=== PATIENT | male | born 1990 | race Caucasian/White ===

== ENCOUNTER 2022-02-10 08:01 | Outpatient (REF) | payer OTHER, SELFPAY ==
[2022-02-10 11:45] LABS: Hematocrit 45.7 % (42.0-52.0); Hemoglobin 15.2 g/dl (14.0-18.0); Mean Corpuscular HGB Conc 33.3 g/dl (31.0-36.0); Mean Corpuscular Hemoglobin 30.5 pg (27.0-33.0); Mean Corpuscular Volume 91.8 fL (80.0-98.0); Platelet Count 309 X10*3/uL (160-400); Red Blood Count 4.98 X10*6/uL (4.60-5.80); Red Cell Distribution Width 12.5 % (11.0-16.0); White Blood Count 5.1 X10*3/uL (4.8-10.8)
[2022-02-10 13:44] LABS: Alanine Aminotransferase 28 U/L (0-40); Albumin Level 4.4 g/dL (3.5-5.0); Alkaline Phosphatase 88 U/L (39-117); Anion Gap 12 (12-20); Aspartate Amino Transferase 31 U/L (5-37); Bilirubin Total 0.5 mg/dL (0.0-1.0); Blood Urea Nitrogen 11 mg/dL (9-16); Calcium 9.5 mg/dL (8.4-10.2); Carbon Dioxide 28 mmol/L (22-29); Chloride 107 mmol/L (96-108); Estimated Glomerular Filt Rate > 60; Glucose Fasting 90 mg/dL (60-99); Potassium 4.6 mmol/L (3.3-5.1); Sodium 142 mmol/L (135-145); TSH reflex Free T4 1.51 uIU/mL (0.32-4.0); Total Protein 7.2 g/dL (6.5-8.0)
== END 2022-02-10 08:02 | disposition home or self-care (01) ==
LOC: HO.WFDLDS 08:01
PROVIDERS: Visit Provider Nurse Practitioner Family
DX: R53.1 Weakness (principal); R53.83 Other fatigue; R42 Dizziness and giddiness
CPT/HCPCS: 36415; 80053; 84443; 85027

== ENCOUNTER → 2022-10-06 12:43 | Outpatient (AMB) | payer OTHER, SELFPAY ==
--- NOTE | 2022-10-06 12:57 | A.OFFPC_ITS ---
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 Accompanied by: Self / Same As Patient Allergies Seasonal Allergies Allergy (Intermediate, Verified 10/06/22 13:19) Congestion Medication List - Last Reconciled 10/06/22 by Elizabeth Floyd CNP betamethasone dipropionate 0.05% 1 appl topical BID PRN fluticasone propionate 50 mcg/actuation (Flonase Allergy Relief) 1 spray intranasal Q12H 30 days Tobacco use date assessed: 09/01/22 Dental Screening Dental Screen Date: 10/06/22 Did you have a dental visit in the last 12 months?: Yes Did you have a dental problem in the last 6 months where you did not have access to dental care?: No Was dental information given to patient?: Patient has dentist HPI HPI Comments History of Present Illness Details 32-year-old male presents for psoriasis and lab review He was prescribed betamethasone cream for rash on his arms and legs. He reports significant improvement especially to the rash on his arms. He states that he ran out of the cream about a week ago. He has Dermatology appointment scheduled for April 2023. No acute symptoms today. He notes that he forgot to get his fasting blood work done. [facility] Medical History Anxiety Depression Surgical History No pertinent past surgical history Social History Housing: House Patient Tobacco Use Status: Current everyday Tobacco user Tobacco use type: Cigarette Cigarettes Per Day: 2 Years Smoked: 2 e-Cigarette/Vaping Use: Never Used service: No Current occupational status: employed Current occupation: [employer] Cognitive needs: No Hearing needs: No Vision needs: No Questionnaire Thrive Questionnaire Date Thrive assessed: 09/01/22 RITA-7 AMB Questionnaire RITA-7 Date RITA - 7 assessed: 09/01/22 Source: Developed by Drs. Wojciech Martin, Veena Hobson, Nathaniel Judge and colleagues, with an educational linn from [employer]. Review of Systems Const Details: Const Denies chills, Denies fatigue, Denies fever(s), Denies headache(s) and Denies weakness ENT Denies dizziness and Denies headache(s) Card Denies chest pain, Denies lightheadedness, Denies dyspnea and Denies other (Palpitations) Resp Denies cough, Denies dyspnea, Denies wheezing and Denies other ( shortness of breath) GI Denies abdominal pain, Denies melena, Denies hematochezia, Denies change in bowel habits, Denies dyspepsia and Denies nausea Denies hematuria and Denies dysuria Musc Denies abnormal gait, Denies myalgias, Denies arthralgias, Denies numbness and Denies tingling Skin/Breast Reports rash to his arms and legs, Denies unusual bruising and Denies wounds Neuro Denies abnormal gait, Denies dizziness, Denies headache(s), Denies memory loss, Denies numbness, Denies Sensory deficit (Neuro), Denies tingling and Denies weakness Psych Denies anxiety and Denies depression Endo Denies fatigue Aller/Immun Denies wheezing Physical exam (Primary Care) Vital Signs: Last Vital Signs Pulse 86 10/06/22 12:59 BP 130/74 10/06/22 12:59 Pulse Ox 98 10/06/22 12:59 Oxygen Delivery Method Room Air 10/06/22 12:59 BMI result Body Mass Index 27.9 Tobacco/Smoking Status: Tobacco use Status Tobacco use date assessed 09/01/22 10/06/22 13:01 Patient Tobacco Use Status Current everyday Tobacco 10/06/22 13:01 Tobacco use type Cigarette 10/06/22 13:01 e-Cigarette/Vaping Use Never Used 10/06/22 13:01 Thrive Assessment: Date of Thrive Assessment Date Thrive assessed 09/01/22 10/06/22 13:01 Const Other: General: no acute distress and well developed Nutritional Appearance: well nourished Orientation/consciousness: patient oriented x3 HENMT Head: Yes normocephalic and Yes atraumatic Eyes General: appearance normal, both eyes and all related structures Pupils: Equal, round and reactive pupils present EOM: EOMs intact bilaterally Resp Effort & Inspection: normal respiratory effort Auscultation: clear to auscultation bilaterally Cardio Rate: regular rate Rhythm: regular rhythm Heart sounds: S1 normal heart sound present, S2 normal heart sound present, no gallops, no murmurs and no rubs GI Palpation (GI): No Abdominal aortic bruit present, Soft to palpation, nontender, No hepatosplenomegaly present and No Rebound tenderness present Auscultation: normal bowel sounds General: Yes no CVA tenderness Back/Spine/Pelvis Back: no CVA tenderness Cervical Spine: cervical ROM normal and No Cervical spine tenderness Thoracic/Lumbar Spine: thoraco-lumbar ROM normal, No pain with thoraco-lumbar ROM, No thoracic spinal tenderness and No lumbar spinal tenderness Extrem General: Yes normal to inspection, No edema and No calf tenderness Skin General: warm and dry. Normal skin color. Normal skin turgor Lesions: no lesions Rashes: Patches of take red skin with silvery scales noted to exposed areas of his upper extremities and lower extremities (from knees to ankles); consistent with psoriasis Trauma: no lacerations or abrasions Wounds: no wounds Nails: normal Neuro General: patient oriented x3, gait normal and no focal neuro deficit Cranial nerves: Yes Equal, round and reactive pupils present Cognition (Neuro): normal cognition Gait exam (Neuro): Normal gait present Motor exam (neuro): 5/5 motor strength present throughout Sensory Exam: No Sensory deficit (Neuro) Psych Appearance: grossly normal Affect: normal affect Attitude: cooperative Thought process: Normal thought process present Assessment and Plan Assessment & Plan (1) Psoriasis: Code(s): L40.9 - Psoriasis, unspecified Plan: Psoriasis rash noted to upper arms and lower legs. Marked improvement to rash on arms Informed that he has refills on betamethasone cream. Advised to get refill from the pharmacy Follow up with dermatology as planned Advised to get fasting blood work done and schedule a telehealth appointment for review Return with worsening or new signs and symptoms Verbalized understanding and agreed with the treatment plan. Coding Level of Care Code Est Pt Level 3 (62882) Diagnoses Psoriasis L40.9 Time Spent (min) 25
[2022-10-06 12:59] VITALS: BP 130/74; PULSE 86; O2SAT 98; BMI 27.9
== END ==
PROVIDERS: PCP Nurse Practitioner Family; Visit Provider Nurse Practitioner Family
DX: L40.9 Psoriasis, unspecified (principal)
CPT/HCPCS: 99213

== ENCOUNTER 2022-10-20 11:19 | Outpatient (REF) | payer OTHER, SELFPAY ==
[2022-10-20 15:01] LABS: Cholesterol 206 mg/dL; HDL Cholesterol 78 mg/dL; LDL Cholesterol Calculated 110 mg/dl; Triglycerides 90 mg/dL
== END 2022-10-20 11:20 | disposition home or self-care (01) ==
LOC: HO.WFDLDS 11:19
PROVIDERS: Visit Provider Nurse Practitioner Family
DX: Z00.00 Encounter for general adult medical examination without abnormal findings (principal)
CPT/HCPCS: 36415; 80061

== ENCOUNTER 2022-10-30 16:07 | Outpatient (AMB) | payer OTHER, SELFPAY ==
--- NOTE | 2022-10-30 16:04 | A.OFFPC_ITS ---
Intake Visit Reasons: Lab f/u/[phone]/Iphone Intake Note: Patient reports he is ready for his telehealth call. 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 Patient upper is no complaints as this time. [facility] Medical History Anxiety Depression Surgical History No pertinent past surgical history Social History Housing: House Patient Tobacco Use Status: Current everyday Tobacco user Tobacco use type: Cigarette Cigarettes Per Day: 2 Years Smoked: 2 e-Cigarette/Vaping Use: Never Used service: No Current occupational status: employed Current occupation: [employer] Cognitive needs: No Hearing needs: No Vision needs: No Questionnaire Thrive Questionnaire Date Thrive assessed: 09/01/22 RITA-7 AMB Questionnaire RITA-7 Date RITA - 7 assessed: 09/01/22 Source: Developed by Drs. Wojciech Martin, Veena Hobson, Nathaniel Judge and colleagues, with an educational linn from [employer]. Review of Systems Const Details: Const Denies chills, Denies fatigue, Denies fever(s), Denies headache(s) and Denies weakness ENT Denies dizziness and Denies headache(s) Card Denies chest pain, Denies lightheadedness, Denies dyspnea and Denies other (Palpitations) Resp Denies cough, Denies dyspnea, Denies wheezing and Denies other ( shortness of breath) GI Denies abdominal pain, Denies melena, Denies hematochezia, Denies change in arturo wel habits, Denies dyspepsia and Denies nausea Denies hematuria and Denies dysuria Musc Denies abnormal gait, Denies myalgias, Denies arthralgias, Denies numbness and Denies tingling Skin/Breast Denies rash, Denies unusual bruising and Denies wounds Neuro Denies abnormal gait, Denies dizziness, Denies headache(s), Denies memory loss, Denies numbness, Denies Sensory deficit (Neuro), Denies tingling and Denies weakness Psych Denies anxiety, Denies depression, Denies memory loss Endo Denies cold intolerance, Denies fatigue, Denies heat intolerance, Denies polydipsia and Denies polyuria Aller/Immun Denies wheezing Physical exam (Primary Care) Tobacco/Smoking Status: Tobacco use Status Tobacco use date assessed 09/01/22 10/30/22 16:07 Patient Tobacco Use Status Current everyday Tobacco 10/30/22 16:07 Tobacco use type Cigarette 10/30/22 16:07 e-Cigarette/Vaping Use Never Used 10/30/22 16:07 Thrive Assessment: Date of Thrive Assessment Date Thrive assessed 09/01/22 10/30/22 16:07 Const Other: Telehealth. No physical exam Telehealth Telehealth Location of provider rendering services: practice address Location of patient: address on file Patient Identification confirmed using: Name, : Yes Telehealth method: voice only Patient verbally consented to treatment: Yes Patient verbally consented to billing insurance company: Yes Patient informed of any privacy concerns related to visit: Yes Minutes spent on Phone/Video with Pt.: 15 Assessment and Plan Assessment & Plan (1) Hypercholesterolemia: Code(s): E78.00 - Pure hypercholesterolemia, unspecified Plan: Recent lab results reviewed with the patient Cholesterol is slightly elevated Advised to limit foods high in saturated fat and avoid foods high trans fat Routine exercise encouraged Call and schedule an appointment for a physical for next year Return with symptoms or concerns Verbalized understanding and agreed with treatment plan. Coding Level of Care Code Est Pt Level 3 (68164) Diagnoses Hypercholesterolemia E78.00
== END 2022-10-30 17:45 ==
PROVIDERS: PCP Nurse Practitioner Family; Visit Provider Nurse Practitioner Family
DX: E78.00 Pure hypercholesterolemia, unspecified (principal)
CPT/HCPCS: 99213

== ENCOUNTER 2023-04-30 16:52 | Outpatient (AMB) | payer OTHER, SELFPAY ==
--- NOTE | 2023-04-30 16:55 | A.OFFPC_ITS ---
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 Accompanied by: Self / Same As Patient Allergies Seasonal Allergies Allergy (Intermediate, Verified 04/30/23 17:36) Congestion Medication List - Last Reconciled 04/30/23 by Elizabeth Floyd CNP betamethasone dipropionate 0.05% 1 appl topical BID PRN fluticasone propionate 50 mcg/actuation (Flonase Allergy Relief) 1 spray intranasal Q12H 30 days Tobacco use date assessed: 04/30/23 Dental Screening Dental Screen Date: 04/30/23 Did you have a dental visit in the last 12 months?: No Did you have a dental problem in the last 6 months where you did not have access to dental care?: No Was dental information given to patient?: Patient has dentist HPI HPI Comments History of Present Illness Details 32-year-old male presents with complaint s of mild and discomfort to his bilateral lower knees. He attributes his symptoms to compensating for or trying to correct his wide gait which started at childhood. No fall, injury, or trauma. No tingling, numbness, or loss of sensation. [facility] Medical History Depression Anxiety Surgical History No pertinent past surgical history Social History Housing: House Patient Tobacco Use Status: Current someday Tobacco user Tobacco use type: Cigarette Cigarettes Per Day: 2 Years Smoked: 2 Packs per year/per ci.20 e-Cigarette/Vaping Use: Never Used service: No Current occupational status: employed Current occupation: [employer] Cognitive needs: No Hearing needs: No Vision needs: No Questionnaire Thrive Questionnaire Date Thrive assessed: 09/01/22 RITA-7 AMB Questionnaire RITA-7 Date RITA - 7 assessed: 09/01/22 Source: Developed by Drs. Wojciech Martin, Veena Hobson, Nathaniel Judge and colleagues, with an educational linn from [employer]. Review of Systems Const Details: Const Denies chills, Denies fatigue, Denies fever(s), Denies headache(s) and Denies weakness ENT Denies dizziness and Denies headache(s) Card Denies chest pain, Denies lightheadedness, Denies dyspnea and Denies other (Palpitations) Resp Denies cough, Denies dyspnea, Denies wheezing and Denies other ( shortness of breath) GI Denies abdominal pain, Denies melena, Denies hematochezia, Denies change in bowel habits, Denies dyspepsia and Denies nausea Denies hematuria and Denies dysuria Musc Reports as per HPI Skin/Breast Denies rash, Denies unusual bruising and Denies wounds Neuro Reports wide gait, Denies dizziness, Denies headache(s), Denies memory loss, Denies numbness, Denies Sensory deficit (Neuro), Denies tingling and Denies weakness Psych Denies anxiety, Denies depression, Denies memory loss Endo Denies cold intolerance, Denies fatigue, Denies heat intolerance, Denies polydipsia and Denies polyuria Aller/Immun Denies wheezing Physical exam (Primary Care) Vital Signs: Last Vital Signs Temp 97.6 F 04/30/23 16:57 Pulse 89 04/30/23 16:57 Resp 13 04/30/23 16:57 BP 126/80 04/30/23 16:57 Pulse Ox 97 04/30/23 16:57 Oxygen Delivery Method Room Air 04/30/23 16:57 BMI result Body Mass Index 28.2 Tobacco/Smoking Status: Tobacco use Status Tobacco use date assessed 04/30/23 04/30/23 17:02 Patient Tobacco Use Status Current someday Tobacco 04/30/23 17:02 Tobacco use type Cigarette 04/30/23 17:02 e-Cigarette/Vaping Use Never Used 04/30/23 17:02 Thrive Assessment: Date of Thrive Assessment Date Thrive assessed 09/01/22 04/30/23 17:02 Const Other: General: no acute distress and well developed Nutritional Appearance: well nourished Orientation/consciousness: patient oriented x3 HENMT Head: Yes normocephalic and Yes atraumatic Eyes General: appearance normal, both eyes and all related structures Pupils: Equal, round and reactive pupils present EOM: EOMs intact bilaterally Resp Effort & Inspection: normal respiratory effort Auscultation: clear to auscultation bilaterally Cardio Rate: regular rate Rhythm: regular rhythm Heart sounds: S1 normal heart sound present, S2 normal heart sound present, no gallops, no murmurs and no rubs GI Palpation (GI): No Abdominal aortic bruit present, Soft to palpation, nontender, No hepatosplenomegaly present and No Rebound tenderness present Auscultation: normal bowel sounds General: Yes no CVA tenderness Back/Spine/Pelvis Back: no CVA tenderness Cervical Spine: cervical ROM normal and No Cervical spine tenderness Thoracic/Lumbar Spine: thoraco-lumbar ROM normal, No pain with thoraco-lumbar ROM, No thoracic spinal tenderness and No lumbar spinal tenderness Extrem General: Yes normal to inspection, No edema and No calf tenderness No overt signs of injury or trauma Skin General: warm and dry. Normal skin color. Normal skin turgor Neuro General: patient oriented x3, gait broad and no focal neuro deficit Cranial nerves: Yes Equal, round and reactive pupils present Cognition (Neuro): normal cognition Gait exam (Neuro): Broad-based gait present Sensory Exam: No Sensory deficit (Neuro) Psych Appearance: grossly normal Affect: normal affect Attitude: cooperative Thought process: Normal thought process present Assessment and Plan Assessment & Plan (1) Bilateral knee pain: Code(s): M25.561 - Pain in right knee; M25.562 - Pain in left knee Plan: Pain and discomfort to bilateral lower knees Broad-based gait present Will refer to physical therapy May take Tylenol ibuprofen for pain or discomfort Follow-up with worsening or new symptoms Verbalized understanding and agreed with treatment plan (2) Broad-based gait: Code(s): R26.0 - Ataxic gait Plan: As above Orders: Orders PT Evaluation and Treatment Today M25.561 - Pain in right knee, M25.562 - Pain in left knee, R26.0 - Ataxic gait Coding Level of Care Code Est Pt Level 3 (76136) Diagnoses Bilateral knee pain M25.561; M25.562 Broad-based gait R26.0
[2023-04-30 16:57] VITALS: BP 126/80; PULSE 89; RESP 13; TEMP 36.4; O2SAT 97; BMI 28.2
== END 2023-04-30 17:48 | disposition home or self-care (01) ==
PROVIDERS: PCP Nurse Practitioner Family; Visit Provider Nurse Practitioner Family
DX: M25.561 Pain in right knee (principal); M25.562 Pain in left knee; R26.0 Ataxic gait
CPT/HCPCS: 99213

== ENCOUNTER 2023-08-01 14:00 | Outpatient (RCR) | payer OTHER, SELFPAY ==
--- NOTE | 2023-06-27 09:22 | MHC.PT.EP ---
[facility] [place] Office [place] Office [place] Office [address] [phone] F: [phone] F: [phone] F: [phone] F: [phone] Physical Therapy Plan of Care Date of Evaluation: 06/27/23 Date of Surgery: NA Diagnosis: BROAD BASED GT, BILATERAL KNEE PAIN Assessment: Pt IS 33 YO M REFERRED TO PT FROM [facility] NP WITH KNEE PAIN. Pt ATTRIBUTES KNEE PAIN TO THE WAY HE WALKS. NO INJURY. PRESENTS WITH GENU VARUS/ SUPINATION WITH GT, TIGHT HS, HIP FLEXORS, CALF MMS, AND HIP ROTATOR MMS. SHOULD BENEFIT FROM PT TO ADDRESS THESE ISSUES. OF NOTE, Pt WITH LONG PANTS/KHAKIS ON. TO WEAR/BRING SHORTS NEXT SESSION FOR FURTHER PAT ASSESSMENT Frequency and Duration: The patient will be seen 1X/WK X 4 WKS Short Term Goals: 1. I HEP WITH DC EX PLAN 2. 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 DECREASED KNEE PAIN AT LEAST 50% WITH ADLS 2. IMPROVED LEFI (65/80 SOC) Treatment Plan: Modalities to reduce pain, spasms and effusion. Manual therapy to restore motion and function. Therapeutic exercise to improve strength and flexibility. Neuromuscular re-education for posture and balance. Therapeutic activities to return to functional activities of daily living. Electronically signed by: ELIAZAR WHITE PT Please sign and return to therapist. Thank you for your referral.
--- NOTE | 2023-07-03 09:02 | MHC.PT.OD ---
[facility] [place] Office [place] Office [place] Office [address] Arabella Levy [address] [phone] F: [phone] F: [phone] F: [phone] F: [phone] Physical Therapy Daily Note Diagnosis: BROAD BASED GT, BILATERAL KNEE PAIN Date of Surgery: NA Date of Evaluation: 06/27/23 Date of Treatment: 07/03/23 Treatments to Date: 2 Cancellations to Date: No Shows to Date: Authorized Visits: Insurance End Date: Precautions/ Contraindications:NONE SPECIFIED Subjective: Has R>L sided knee pain. Has been doing exercises since last week. Pain Score and Location: 3 KNEES Objective Flowsheet: Tests & Measures PT EVAL Exercises BIKE FOR WARM UP Hooklying hip ER stretch x 4R bilaterally x 30 sec hold, standing gastroc and soleus stretches x 4R x 30 sec each bilaterally, seated HS stretch x 4R x 30 sec hold, anterior tibialis stretch against wall x 30 sec hold x 4R each. Modalities Assessment: 07/03/23: Pt presents with high arch, increased hip ER/supinated foot. Pt encouraged to perform stretches several times daily to tolerance. Pt issued written HEP program. Pt verbalized relief in sx post stretches. Pt may benefit from referral to dermatology as he has widespread psorasis throughout B LE and elbows. Question of inflammation from psorasis impacting LE soreness. 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 Pt ATTRIBUTES KNEE PAIN TO THE WAY HE WALKS. NO INJURY. PRESENTS WITH GENU VARUS/ SUPINATION WITH GT, TIGHT HS, HIP FLEXORS, CALF MMS, AND HIP ROTATOR MMS. SHOULD BENEFIT FROM PT TO ADDRESS THESE ISSUES. OF NOTE, Pt WITH LONG PANTS/KHAKIS ON. TO WEAR/BRING SHORTS NEXT SESSION FOR FURTHER PAT ASSESSMENT PT Plan: assess response to stretches Short Term Goals: 1. I HEP WITH DC EX PLAN 2. 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 DECREASED KNEE PAIN AT LEAST 50% WITH ADLS 2. IMPROVED LEFI (65/80 SOC) Electronically signed by: Keshia Woodruff, PT, DPT
--- NOTE | 2023-10-01 15:42 | MHC.PT.DC ---
[facility] [place] Office [place] Office [place] Office [address] Arabella Levy [address] [facility] [phone] F: [phone] F: [phone] F: [phone] F: [phone] Physical Therapy Discharge Report Diagnosis: BROAD BASED GT, BILATERAL KNEE PAIN Date of Surgery: NA Date of Evaluation: 06/27/23 Date of Discharge: 10/01/23 Treatments to Date: 4 Cancellations to Date: No Shows to Date: Discharge Status: Achieved Goals Improved Function Independent with HEP Discharge Summary: GOOD PERF EXS WITH MIN CUES Electronically signed by: ELIAZAR WHITE PT Please sign and return to therapist. Thank you for your referral.
== END 2023-10-01 15:43 | disposition home or self-care (01) ==
LOC: HO.PTWFD 14:00
PROVIDERS: PCP Nurse Practitioner Family; Visit Provider Nurse Practitioner Family
DX: R26.0 Ataxic gait (principal); M25.561 Pain in right knee; M25.562 Pain in left knee
CPT/HCPCS: 97110; 97161; 97530

== ENCOUNTER 2024-01-04 12:50 | Outpatient (AMB) | payer OTHER, SELFPAY ==
--- NOTE | 2024-01-04 12:54 | MHC.PC.OV ---
Vital Signs 01/04/24 12:59 Height 5 ft 10 in Weight 187 lb 2 oz BMI 26.8 BP 110/70 Blood Pressure Location Rt brachial Position Sitting Respiration 16 Pulse 103 H Pulse Source Pulse Oximeter Temp 98.0 F Temp Source Oral Pulse Oximetry (%) 97 Oxygen Delivery Method Room Air Intake Visit Reasons: ED- Follow Up - Head injury Intake Note: patient here for ED follow up/ head injury [employer] Required: No Allergies Seasonal Allergies Allergy (Intermediate, Verified 01/04/24 12:57) Congestion Tobacco use date assessed: 01/04/24 Dental Screening Dental Screen Date: 01/04/24 Did you have a dental visit in the last 12 months?: No Did you have a dental problem in the last 6 months where you did not have access to dental care?: No Was dental information given to patient?: Patient has dentist HPI HPI Comments History of Present Illness Details 33-year-old male presents for an ED discharge follow-up visit. He was recently evaluated and treated at [facility] for head injury. According to [facility] record, on 12/21/2023, the patient was in [place] and was drinking with his significant other. He went up to daughter room where his significant other found him on the floor seizing. EMS was activated and he was brought to the hospital. The patient does not remember the events that led to his fall. He does not know if he fell the stairs or from standing. Head CT was performed. He was referred to [facility] Neurology and advised to avoid driving until cleared by Neurology. Head CT: 1. Small subdural hematoma measuring up to 6 mm in the middle cranial fossa. No midline shift or subarachnoid or epidural hemorrhage 2. Trace increased density along the right tentorium and falx cerebri likely represents extension of small volume subdural blood products. Dural venous sinus thrombosis will be within the differential but is considered less likely. Correlation with symptoms is recommended 3. Borderline low attenuation in the right posterior temporal low, which may be artifactual with a small contusion within the differential. Consider correlation with MRI The patient was admitted on 12/21/2023 to [facility] PCU. He was found to have bilateral anterior Rosenberg subdural hemorrhages extending from the right frontal to temporal and left temporal lobes measuring up to 7 mm on the right with no evidence of midline shift. The patient also had a left basal skull fracture that was displaced with a right sphenoid sinus fracture and occult basal fracture concern with bilateral ethmoid sphenoid fractures. He was discharged 4 days later[address] His last CT at [facility] was on 12/23/2023 and revealed right frontal and temporal regions with subdural hematomas measuring up to 6 mm and 2 mm thick over the right tentorial leaflet likely secondary to redistribution with no midline shift. The patient was discharged on multiple medications and instructed to follow-up closely with his PCP. New medications: Levetiracetam 500 mg twice daily, thiamine 100 mg daily, folic acid 1 mg daily cetirizine 10 mg daily, and laertsszwr-ssdpykgslaguq-lxobfwkq 50-320 5-40 mg, 2 tabs every 4 hours p.r.n., not to exceed 6 tablets per day, not to exceed 4000 mg acetaminophen per day The patient notes he must have tripped on a chair and fell by the pool at a hotel in [place] on 12/21/2023. He notes that his headaches have significantly improved. He no longer experiences generalized headaches. He has been experiencing headache to his right occiput. He currently has mild headache to his right occiput. He denies visual disturbances or neurological deficit. He notes that he has a repeat head CT with [facility] later this afternoon and has a follow-up appointment to establish care with [facility] Neurology on 01/21/2024. [facility] Medical History Depression Anxiety Surgical History No pertinent past surgical history Social History Housing: House Patient Tobacco Use Status: Current someday Tobacco user Tobacco use type: Cigarette Cigarettes Per Day: 2 Years Smoked: 2 e-Cigarette/Vaping Use: Never Used Second Hand Smoke Exposure: Yes service: No Current occupational status: employed Current occupation: [employer] Current occupational exposures/hazards: No Cognitive needs: No Hearing needs: No Vision needs: No Questionnaire PHQ-9 Over the last 2 weeks, how often have you been bothered by any of the following problems? 1. Little interest or pleasure in doing things: not at all 2. Feeling down, depressed, or hopeless: not at all 3. Trouble falling or staying asleep, or sleeping too much: not at all 4. Feeling tired or having little energy: not at all 5. Poor appetite or overeating: not at all 6. Feeling bad about yourself - or that you are a failure or have let yourself or your family down: not at all 7. Trouble concentrating on things, such as reading the newspaper or watching television: not at all 8. Moving or speaking so slowly that other people could have noticed. Or the opposite - being so fidgety or restless that you have been moving around a lot more than usual: not at all 9. Thoughts that you would be better off or of hurting yourself in some way: not at all Total score: 0 [id number] - PHQ-9 Billing: Yes Source: Developed by Drs. Wojciech Martin, Veena Hobson, Nathaniel Judge and colleagues, with an educational linn from [employer]. Thrive Questionnaire Date Thrive assessed: 01/04/24 I am a: Patient What is your living situation today?: I have a steady place to live Within the past 12 months, did the food you bought not last and you didn't have the money to get more?: I choose not to answer this question Within the past 12 months, did you worry whether your food would run out before you got money to buy more?: I choose not to answer this question Do you have trouble paying for medicines?: I choose not to answer this question Do you have trouble getting transportation to medical appointments?: I choose not to answer this question Do you have trouble paying your heating and electricity bill?: I choose not to answer this question Do you have trouble taking care of your child, family member or friend?: I choose not to answer this question Do you have trouble with day-to-day activities such as bathing, preparing meals, shopping, managing finances, etc.?: I choose not to answer this question Are you currently unemployed and looking for a job?: I choose not to answer this question Are you interested in more education?: I choose not to answer this question Please select the resources that you would like help with: None Currently or been in a relationship where the following occur: I choose not to answer THRIVE Score: 0 AUDIT C Alcohol Use Questionnaire (AUDIT-C) 1. How often do you have a drink containing alcohol?: Monthly or less 2. How many drinks containing alcohol do you have on a typical day when you are drinking?: 3 or 4 3. How often do you have six or more drinks on one occasion?: Less than monthly Total Score: 3 RITA-7 AMB Questionnaire RITA-7 Date RITA - 7 assessed: 01/04/24 Feeling nervous, anxious, or on edge: 1 = Several days Not being able to stop or control worryin = Several days Worrying too much about different things: 1 = Several days Trouble relaxin = Several days Being so restless that it is hard to sit still: 1 = Several days Becoming easily annoyed or irritable: 1 = Several days Feeling afraid as if something awful might happen: 1 = Several days Total RITA-7 score (0-4 normal; 5-9 mild; 10-14 moderate; 15-21 severe): 7 Source: Developed by Drs. Wojciech Martin, Veena Hobson, Nathaniel Judge and colleagues, with an educational lnin from [employer]. RITA-7 Assessment Billing RITA-7 Assessment Tool: RITA-7 Assessment 00334 Review of Systems Const Details: Const Denies chills, Denies fatigue, Denies fever(s), Reports headache(s) and Denies weakness ENT Denies dizziness and Denies headache(s) Card Denies chest pain, Denies lightheadedness, Denies dyspnea and Denies other (Palpitations) Resp Denies cough, Denies dyspnea, Denies wheezing and Denies other ( shortness of breath) GI Denies abdominal pain, Denies melena, Denies hematochezia, Denies change in bowel habits, Denies dyspepsia and Denies nausea Denies hematuria and Denies dysuria Musc Denies abnormal gait, Denies myalgias, Denies arthralgias, Denies numbness and Denies tingling Skin/Breast Denies rash, Denies unusual bruising and Denies wounds Neuro Denies abnormal gait, Denies dizziness, Denies headache(s), Denies memory loss, Denies numbness, Denies Sensory deficit (Neuro), Denies tingling and Denies weakness Psych Denies anxiety, Denies depression, Denies memory loss Endo Denies cold intolerance, Denies fatigue, Denies heat intolerance, Denies polydipsia and Denies polyuria Aller/Immun Denies wheezing Physical exam (Primary Care) Vital Signs: Last Vital Signs Temp 98.0 F 01/04/24 12:59 Pulse 103 H 01/04/24 12:59 Resp 16 01/04/24 12:59 BP 110/70 01/04/24 12:59 Pulse Ox 97 01/04/24 12:59 Oxygen Delivery Method Room Air 01/04/24 12:59 BMI result Body Mass Index 26.8 Tobacco/Smoking Status: Tobacco use Status Tobacco use date assessed 01/04/24 01/04/24 12:59 Patient Tobacco Use Status Current someday Tobacco 01/04/24 12:56 Tobacco use type Cigarette 01/04/24 12:56 e-Cigarette/Vaping Use Never Used 01/04/24 12:56 PHQ-9: PHQ-9 Score PHQ-9: Total score 0 01/04/24 13:31 Thrive Assessment: Date of Thrive Assessment Date Thrive assessed 01/04/24 01/04/24 12:56 Currently or been in a relationship where the following occur: I choose not to answer Const Other: General: no acute distress and well developed Nutritional Appearance: well nourished Orientation/consciousness: patient oriented x3 HENMT Head: Yes normocephalic and Yes atraumatic Eyes General: appearance normal, both eyes and all related structures Pupils: Equal, round and reactive pupils present EOM: EOMs intact bilaterally Resp Effort & Inspection: normal respiratory effort Auscultation: clear to auscultation bilaterally Cardio Rate: regular rate Rhythm: regular rhythm Heart sounds: S1 normal heart sound present, S2 normal heart sound present, no gallops, no murmurs and no rubs GI Palpation (GI): No Abdominal aortic bruit present, Soft to palpation, nontender, No hepatosplenomegaly present and No Rebound tenderness present Auscultation: normal bowel sounds General: Yes no CVA tenderness Back/Spine/Pelvis Back: no CVA tenderness Extrem General: Yes normal to inspection, No edema and No calf tenderness Skin General: warm and dry. Normal skin color. Normal skin turgor Lesions: no lesions Rashes: no rashes Trauma: no lacerations or abrasions Wounds: no wounds Nails: normal Neuro General: patient oriented x3, gait normal and no focal neuro deficit Cranial nerves: Yes Equal, round and reactive pupils present Cognition (Neuro): normal cognition Gait exam (Neuro): Normal gait present Sensory Exam: No Sensory deficit (Neuro) Psych Appearance: grossly normal Affect: normal affect Attitude: cooperative Thought process: Normal thought process present Coding Level of Care Code Est Pt Level 4 (25600) Diagnoses Subdural hematoma S06.5XAA Headache R51.9 Hospital discharge follow-up Z09 Laboratory tests ordered as part of a complete physical exam (CPE) Z00.00 Additional Codes RITA-7 Assessment Billing - RITA-7 Assessment Tool: RITA-7 Assessment 98681 ([id number]) Assessment & Plan Assessment & Plan (1) Subdural hematoma: Code(s): S06.5XAA - Traumatic subdural hemorrhage with loss of consciousness status unknown, initial encounter Category: Medical Plan: Patient fell and struck his head in mid December. Head CT revealed small subdural hematoma measuring up to 6 mm in the middle cranial fossa. His headaches have significantly improved since he fell and struck his head. Lately he has been experiencing intermittent headache to his right occipital. He currently has a mild headache to his right occiput. He has been taking his medications as prescribed. Normal physical exam. No focal neuro deficit. Encouraged to continue current treatment regimen. Follow-up with Neurology as planned. Encouraged to sign release for his PCP to obtain is neurology records from [facility]. Advised to get fasting lab work done before his next visit. Return for an extended physical exam in 1 month or sooner with worsening or new symptoms. Verbalized understanding and agreed with treatment plan. (2) Headache: Code(s): R51.9 - Headache, unspecified Category: Medical Plan: Plan as above (3) Hospital discharge follow-up: Code(s): Z09 - Encounter for follow-up examination after completed treatment for conditions other than malignant neoplasm Category: Medical Plan: Plan as above (4) Laboratory tests ordered as part of a complete physical exam (CPE): Code(s): Z00.00 - Encounter for general adult medical examination without abnormal findings Category: Medical Plan: Fasting labs ordered as part of a complete physical exam. Advised to fast for at least 10 hours before getting labs drawn. May drink water Verbalized understanding and agreed with treatment plan. Orders: Orders Complete Blood Count Auto Diff Today Z00.00 - Encounter for general adult medical examination without abnormal findings TSH reflex Free T4 Today Z00.00 - Encounter for general adult medical examination without abnormal findings UA CC w/rflx Micro + Cult Today Z00.00 - Encounter for general adult medical examination without abnormal findings Comprehensive [place]. Panel Fast Today Z00.00 - Encounter for general adult medical examination without abnormal findings Lipid Panel Today Z00.00 - Encounter for general adult medical examination without abnormal findings Medications: New yzzuzodzud-rljfpkbotpipj-kcyj 50-325-40 mg 1 tabs every 4 hours p.r.n., not to exceed 6 tablets per day, not to exceed 4000 mg acetaminophen per day 1 tab PO Q4H 20 tabs 0RF
[2024-01-04 12:59] VITALS: BP 110/70; PULSE 103; RESP 16; TEMP 36.7; O2SAT 97; BMI 26.8
== END 2024-01-04 14:03 | disposition home or self-care (01) ==
LOC: HO.HMCFM 12:51
PROVIDERS: PCP Nurse Practitioner Family; Visit Provider Nurse Practitioner Family
DX: S06.5XAA Traumatic subdural hemorrhage with loss of consciousness status unknown, initial encounter (principal); R51.9 Headache, unspecified; Z09 Encounter for follow-up examination after completed treatment for conditions other than malignant neoplasm; Z00.00 Encounter for general adult medical examination without abnormal findings

== ENCOUNTER → 2024-01-04 12:50 | Outpatient (BNVA) | payer OTHER, SELFPAY | PROVIDERS: PCP Nurse Practitioner Family; Visit Provider Nurse Practitioner Family | DX: S06.5XAA Traumatic subdural hemorrhage with loss of consciousness status unknown, initial encounter (principal); R51.9 Headache, unspecified | CPT/HCPCS: 96127 ==

== ENCOUNTER 2024-01-23 10:09 | Outpatient (AMB) | payer OTHER, SELFPAY ==
--- NOTE | 2024-01-23 10:17 | A.OFFPC_ITS ---
Vital Signs 01/23/24 10:21 Height 5 ft 10 in Weight 183 lb 4 oz BMI 26.3 BP 108/66 Blood Pressure Location Rt brachial Position Sitting Respiration 16 Pulse 75 Pulse Source Pulse Oximeter Temp 97.3 F Temp Source Temporal Artery Scan Pulse Oximetry (%) 97 Oxygen Delivery Method Room Air Intake Visit Reasons: Med Review and ER /FU Intake Note: patient here for follow up on med review and work clearance Ehs Specialist Required: No Allergies Seasonal Allergies Allergy (Intermediate, Verified 01/23/24 10:50) Congestion Medication List - Last Reconciled 01/23/24 by Elizabeth Floyd CNP betamethasone dipropionate 0.05% 1 appl topical BID PRN vguxikxvjj-tzndwojvcrshq-kgwi 50-325-40 mg 1 tab PO Q4H cetirizine 10 mg PO DAILY fluticasone propionate 50 mcg/actuation (Flonase Allergy Relief) 1 spray intranasal Q12H 30 days folic acid 1 mg PO DAILY levetiracetam 500 mg PO BID thiamine HCl (vitamin B1) 100 mg PO DAILY Tobacco use date assessed: 01/23/24 Dental Screening Dental Screen Date: 01/23/24 Did you have a dental visit in the last 12 months?: No Did you have a dental problem in the last 6 months where you did not have access to dental care?: No Was dental information given to patient?: Patient has dentist HPI HPI Comments History of Present Illness Details The patient is a 33-year-old male presenting for a follow-up visit for work clearance after treatment for headache and 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 The injury occurred on 12/21/2023, resulting from a fall in [place]. Initial CT imaging showed a thin tentorial hematoma (SDH), a small right temporal SDH, and a trace subarachnoid hemorrhage (TSAH) without significant mass effect and no midline shift. The patient had a follow-up visit with neurosurgery on 01/21/2024, during which he reported ongoing headaches with a severity of 2 to 3 out of 10. A follow-up CT head scan on 01/04/2024 demonstrated resolution of the subdural hematoma and trace SAH. Subsequently, the patient was advised to follow up with neurology for seizure management and to discuss a potential return to work, with additional follow-up with neurosurgery as needed. The patient reports persistent headaches, usually ranging from 1 to 3 in severity, for which Tylenol provides relief. He states these headaches are daily and relatively consistent. No neurological deficits were observed, and the improvement was shown in the CT scan result. 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 - Driving: Concerned about restrictions due to neurological status and seizures. - Medications: Uses Tylenol for headache management. Imaging - Head CT on 01/04/2024 shows resolution of subdural hematoma and trace SAH. [facility] Medical History Depression Anxiety Surgical History No pertinent past surgical history Social History (Reviewed 04/30/23 @ 17:02 by Aide Orlando [facility]) Housing: House Patient Tobacco Use Status: Current someday Tobacco user Tobacco use type: Cigarette Cigarettes Per Day: 2 Years Smoked: 2 e-Cigarette/Vaping Use: Never Used Second Hand Smoke Exposure: Yes service: No Current occupational status: employed Current occupation: [employer] Current occupational exposures/hazards: No Cognitive needs: No Hearing needs: No Vision needs: No Questionnaire PHQ-9 Over the last 2 weeks, how often have you been bothered by any of the following problems? 1. Little interest or pleasure in doing things: not at all 2. Feeling down, depressed, or hopeless: not at all 3. Trouble falling or staying asleep, or sleeping too much: not at all 4. Feeling tired or having little energy: not at all 5. Poor appetite or overeating: not at all 6. Feeling bad about yourself - or that you are a failure or have let yourself or your family down: not at all 7. Trouble concentrating on things, such as reading the newspaper or watching television: not at all 8. Moving or speaking so slowly that other people could have noticed. Or the opposite - being so fidgety or restless that you have been moving around a lot more than usual: not at all 9. Thoughts that you would be better off or of hurting yourself in some way: not at all Total score: 0 57207 - PHQ-9 Billing: Yes Source: Developed by Drs. Wojciech Martin, VeenaNathaniel Galeano and colleagues, with an educational linn from [employer] Thrive Questionnaire Date Thrive assessed: 01/23/24 I am a: Patient What is your living situation today?: I have a steady place to live Within the past 12 months, did the food you bought not last and you didn't have the money to get more?: I choose not to answer this question Within the past 12 months, did you worry whether your food would run out before you got money to buy more?: I choose not to answer this question Do you have trouble paying for medicines?: I choose not to answer this question Do you have trouble getting transportation to medical appointments?: I choose not to answer this question Do you have trouble paying your heating and electricity bill?: I choose not to answer this question Do you have trouble taking care of your child, family member or friend?: I choose not to answer this question Do you have trouble with day-to-day activities such as bathing, preparing meals, shopping, managing finances, etc.?: I choose not to answer this question Are you currently unemployed and looking for a job?: I choose not to answer this question Are you interested in more education?: I choose not to answer this question Please select the resources that you would like help with: None Currently or been in a relationship where the following occur: I choose not to answer THRIVE Score: 0 AUDIT C Alcohol Use Questionnaire (AUDIT-C) 1. How often do you have a drink containing alcohol?: 2-3 times a week 2. How many drinks containing alcohol do you have on a typical day when you are drinking?: 1 or 2 3. How often do you have six or more drinks on one occasion?: Less than monthly Total Score: 4 Score Reviewed/Action Taken: Yes RITA-7 AMB Questionnaire RITA-7 Date RITA - 7 assessed: 01/23/24 Feeling nervous, anxious, or on edge: 1 = Several days Not being able to stop or control worryin = Not at all Worrying too much about different things: 0 = Not at all Trouble relaxin = Not at all Being so restless that it is hard to sit still: 0 = Not at all Becoming easily annoyed or irritable: 0 = Not at all Feeling afraid as if something awful might happen: 0 = Not at all Total RITA-7 score (0-4 normal; 5-9 mild; 10-14 moderate; 15-21 severe): 1 Source: Developed by Drs. Wojciech Martin, Veena Hobson, Nathaniel Judge and colleagues, with an educational linn from [employer] RITA-7 Assessment Billing RITA-7 Assessment Tool: RITA-7 Assessment 22038 Review of Systems Const Details: Const Denies chills, Denies fatigue, Denies fever(s), Reports headache(s) and Denies weakness ENT Denies dizziness and Denies headache(s) Card Denies chest pain, Denies lightheadedness, Denies dyspnea and Denies other (Palpitations) Resp Denies cough, Denies dyspnea, Denies wheezing and Denies other ( shortness of breath) GI Denies abdominal pain, Denies melena, Denies hematochezia, Denies change in bowel habits, Denies dyspepsia and Denies nausea Denies hematuria and Denies dysuria Musc Denies abnormal gait, Denies myalgias, Denies arthralgias, Denies numbness and Denies tingling Skin/Breast Denies rash, Denies unusual bruising and Denies wounds Neuro Reports headaches, Denies abnormal gait, Denies dizziness, Denies memory loss, Denies numbness, Denies Sensory deficit (Neuro), Denies tingling and Denies weakness Psych Denies anxiety, Denies depression, Denies memory loss Endo Denies cold intolerance, Denies fatigue, Denies heat intolerance, Denies polydipsia and Denies polyuria Aller/Immun Denies wheezing Physical exam (Primary Care) Vital Signs: Last Vital Signs Temp 97.3 F 01/23/24 10:21 Pulse 75 01/23/24 10:21 Resp 16 01/23/24 10:21 BP 108/66 01/23/24 10:21 Pulse Ox 97 01/23/24 10:21 Oxygen Delivery Method Room Air 01/23/24 10:21 BMI result Body Mass Index 26.3 Tobacco/Smoking Status: Tobacco use Status Tobacco use date assessed 01/23/24 01/23/24 10:26 Patient Tobacco Use Status Current someday Tobacco 01/23/24 10:26 Tobacco use type Cigarette 01/23/24 10:26 e-Cigarette/Vaping Use Never Used 01/23/24 10:26 PHQ-9: PHQ-9 Score PHQ-9: Total score 0 01/23/24 10:26 Thrive Assessment: Date of Thrive Assessment Date Thrive assessed 01/23/24 01/23/24 10:26 Currently or been in a relationship where the following occur: I choose not to answer Const Other: General: no acute distress and well developed Nutritional Appearance: well nourished Orientation/consciousness: patient oriented x3 [facility] Head: Yes normocephalic and Yes atraumatic Eyes General: appearance normal, both eyes and all related structures Pupils: Equal, round and reactive pupils present EOM: EOMs intact bilaterally Resp Effort & Inspection: normal respiratory effort Auscultation: clear to auscultation bilaterally Cardio Rate: regular rate Rhythm: regular rhythm Heart sounds: S1 normal heart sound present, S2 normal heart sound present, no gallops, no murmurs and no rubs GI Palpation (GI): No Abdominal aortic bruit present, Soft to palpation, nontender, No hepatosplenomegaly present and No Rebound tenderness present Auscultation: normal bowel sounds General: Yes no CVA tenderness Back/Spine/Pelvis Back: no CVA tenderness Extrem General: Yes normal to inspection, No edema and No calf tenderness Skin General: warm and dry. Normal skin color. Normal skin turgor Neuro General: patient oriented x3, gait normal and no focal neuro deficit Cranial nerves: Yes Equal, round and reactive pupils present Cognition (Neuro): normal cognition Gait exam (Neuro): Normal gait present Sensory Exam: No Sensory deficit (Neuro) Psych Appearance: grossly normal Affect: normal affect Attitude: cooperative Thought process: Normal thought process present Coding Level of Care Code Est Pt Level 4 (65897) Diagnoses Headache R51.9 Seizure R56.9 History of traumatic brain injury Z87.820 Additional Codes RITA-7 Assessment Billing - RITA-7 Assessment Tool: RITA-7 Assessment 74373 ([id number]) PHQ-9 - 80338 - PHQ-9 Billing: Yes ([id number]) Assessment & Plan Assessment & Plan (1) Headache: Code(s): R51.9 - Headache, unspecified Category: Medical Plan: Continue taking Tylenol as needed for headache management. (2) Seizure: Code(s): R56.9 - Unspecified convulsions Category: Medical Plan: Follow up with neurology for ongoing seizure management and medication evaluation. (3) History of traumatic brain injury: Code(s): Z87.820 - Personal history of traumatic brain injury Category: Medical Plan: Monitor symptoms and follow neurosurgery as advised, ensuring no new symptoms or neurological deficits arise. Patient Instructions: I discussed with the patient the significance of following up with neurology for seizure management as he has been experiencing post-TBI headaches and seizures. We reviewed the improvement seen in imaging and the importance of monitoring his symptoms. Driving restrictions related to seizures were discussed, and I recommended consulting with neurology to confirm whether he may resume driving. The patient understands the need for potential medication continuation and the importance of clearance from neurology and neurosurgery before driving and returning to full work duties. He is cleared to return to work tomorrow with driving restriction. - Continue taking Tylenol for headache relief as needed. - Follow up with neurology for seizure management. - Drive only after receiving clearance from neurology or neurosurgery. - Return for physical in March, or sooner if any symptoms or concerns arise. - Headache: Continue taking Tylenol as needed for headache management. - Seizure: Follow up with neurology for ongoing seizure management and medication evaluation. - Traumatic Brain Injury: Monitor symptoms and follow neurosurgery as advised, ensuring no new symptoms or neurological deficits arise. Patient was informed and verbally consented to the use of an ambient scribe for clinic note documentation during this visit.
[2024-01-23 10:21] VITALS: BP 108/66; PULSE 75; RESP 16; TEMP 36.3; O2SAT 97; BMI 26.3
== END 2024-01-23 11:32 | disposition home or self-care (01) ==
PROVIDERS: PCP Nurse Practitioner Family; Visit Provider Nurse Practitioner Family
DX: R51.9 Headache, unspecified (principal); R56.9 Unspecified convulsions; Z87.820 Personal history of traumatic brain injury

== ENCOUNTER → 2024-01-23 10:09 | Outpatient (BNVA) | payer OTHER, SELFPAY | PROVIDERS: PCP Nurse Practitioner Family; Visit Provider Nurse Practitioner Family | DX: R51.9 Headache, unspecified (principal); R56.9 Unspecified convulsions; Z87.820 Personal history of traumatic brain injury | CPT/HCPCS: 96127 ==

== ENCOUNTER 2024-10-09 10:39 | Emergency (ER) | payer OTHER, SELFPAY ==
--- NOTE | ~2024-10-09 | CT_ITS ---
EXAMINATION: CT HEAD NECK ANGIOGRAPHY WITH IV CONTRAST HISTORY: headache, right sided blurry vision, hx of TBI COMPARISON: Relation is made with the unenhanced head CT performed earlier in the day. TECHNIQUE: Helical axial images were obtained from the aortic arch to the vertex after intravenous injection of contrast per standard departmental protocol. MIP/3D reconstructions were obtained and reviewed. One or more of the following techniques was used for dose reduction: Automated exposure control, adjustment of the mA and/or kV according to patient size, use of iterative reconstruction technique. DLP: 724 mGy-cm FINDINGS: CTA NECK: AORTIC ARCH: The visualized portions of the arch as well as innominate, right subclavian, and left subclavian arteries show no hemodynamically significant stenosis. Right common carotid artery: There is no large vessel occlusion or hemodynamically significant stenosis. Right internal carotid artery: There is no large vessel occlusion or hemodynamically significant stenosis. Left common carotid artery: There is no large vessel occlusion or hemodynamically significant stenosis. Left internal carotid artery: There is no large vessel occlusion or hemodynamically significant stenosis. (Extracranial internal carotid artery stenosis estimates are based on use of distal ICA as the denominator.) Right vertebral artery: There is no large vessel occlusion or hemodynamically significant stenosis. Left vertebral artery: There is no large vessel occlusion or hemodynamically significant stenosis. CTA HEAD: Right intracranial ICA: There is no large vessel occlusion, hemodynamically significant stenosis, or aneurysm. Right JODI: There is no large vessel occlusion, hemodynamically significant stenosis, or aneurysm. Right MCA: There is no large vessel occlusion, hemodynamically significant stenosis, or aneurysm. Left intracranial ICA: There is no large vessel occlusion, hemodynamically significant stenosis, or aneurysm. Left JODI: There is no large vessel occlusion, hemodynamically significant stenosis, or aneurysm. Left MCA: There is no large vessel occlusion, hemodynamically significant stenosis, or aneurysm. Basilar artery: There is no large vessel occlusion, hemodynamically significant stenosis, or aneurysm. Superior cerebellar arteries: There is no large vessel occlusion, hemodynamically significant stenosis, or aneurysm. Right GLUE SPREADER: There is no large vessel occlusion, hemodynamically significant stenosis, or aneurysm. Left GLUE SPREADER: There is no large vessel occlusion, hemodynamically significant stenosis, or aneurysm. VEINS: Venous enhancement is within normal limits for this technique. SOFT TISSUES: The bilateral parotid, submandibular, and thyroid glands are unremarkable. No laryngeal abnormality is identified. There is no cervical lymphadenopathy. CT/CT angio head neck IMPRESSION: No large vessel occlusion, hemodynamically significant stenosis, or aneurysm in the head and neck. Electronically signed by: Wojciech Hudson MD 10/09/2024 02:41 PM EDT
--- NOTE | ~2024-10-09 | CT_ITS ---
EXAMINATION: CT HEAD WITHOUT IV CONTRAST HISTORY: OLD HEAD INJURY, PAIN IN SKULL FX AREA. TECHNIQUE: Unenhanced helical CT of the head was performed per standard departmental protocol. Coronal and sagittal reformats of the head were also evaluated. One or more of the following techniques was used for dose reduction: Automated exposure control, adjustment of the mA and/or kV according to patient size, use of iterative reconstruction technique. DLP: 677 mGy-cm COMPARISON: There are no prior studies available for comparison. FINDINGS: BRAIN: The brain parenchyma is unremarkable. There is normal jane/white differentiation. The ventricular system is normal in size and configuration. There is no mass effect or midline shift. No intra- or extra-axial fluid collections are identified. SINUSES: The visualized paranasal sinuses are clear. The mastoid air cells and middle ear cavities are well pneumatized. ORBITS: The visualized orbits are unremarkable. BONES/SOFT TISSUES: The extracranial soft tissues are unremarkable. The calvarium is intact. No suspicious lytic or sclerotic lesions. CT/CT head/brain wo IV con IMPRESSION: Unremarkable unenhanced head CT. Electronically signed by: Wojciech Hudson MD 10/09/2024 12:33 PM EDT
--- NOTE | ~2024-10-09 | CT_ITS ---
EXAMINATION: CT MAXILLOFACIAL WITHOUT IV CONTRAST HISTORY: OLD SKULL FX, BLURRY VISION. TECHNIQUE: Serial 1.5 mm helically acquired images were obtained of the facial bones per standard departmental protocol. Coronal and sagittal reformatted images were also obtained and evaluated. One or more of the following techniques was used for dose reduction: Automated exposure control, adjustment of the mA and/or kV according to patient size, use of iterative reconstruction technique. DLP: 293 mGy-cm COMPARISON: There are no prior studies available for comparison. FINDINGS: The facial bones are intact. No fractures are identified. The globes are intact. There is mild mucosal thickening in the right maxillary sinus. The visualized portion of the brain is unremarkable. No soft tissue abnormality is identified. CT/CT facial bones wo IV con IMPRESSION: No evidence of fracture of the facial bones. Electronically signed by: Wojciech Hudson MD 10/09/2024 12:39 PM EDT
[2024-10-09 10:49] VITALS: BP 145/85; PULSE 76; RESP 18; TEMP 36.4; O2SAT 96; BMI 25.8
--- NOTE | 2024-10-09 11:58 | PC.NURSE ---
patient a&ox3, vitals currently stable, rr equal/non labored, pt denies pain states he just feels a heaviness in his head, ct scan performed- pt awaiting results, family at bedside, call arango within reach, plan of care ongoing
--- NOTE | 2024-10-09 12:39 | ED_ITS ---
HPI - General Adult General Chief complaint: Head Injury Stated complaint: head inj in OCT having back head numbness tingling Time Seen by Provider: 10/09/24 12:39 Source: patient and family (patient's brother) Mode of arrival: ambulatory Limitations: no limitations History of Present Illness ED Provider: Sharlene Milian PA-C HPI narrative: Patient is a 34 year old assigned male at with a history of depression, anxiety, and skull fractures + thin tetorial hematoma (SDH) + small right temporal SDH, trace subarachnoid hemorrhage (TSAH) without mass effect or midline shift on 12/21/2023 presenting to the emergency department today with increased posterior head pressure, intermittent right eye blurry vision, and intermittent right eye lid twitching. Patient states that he tripped over a pool chair and hit his head on 12/21/2023 causing multiple skull fractures and areas of bleeding into the brain in [place]. Patient states that he last saw his Neurosurgeon remotely in May or June and was cleared for no additional follow up + allowed to drive. Patient states that he was prophylactically on anti- seizure medication but has since been cleared from all of those. Patient states that he was doing fine but over the last 2 weeks he has had intermittent sharp pains in the back of his head with constant feeling of fullness and intermittent right eye blurry vision with eye lid twitching. Patient denies any dizziness, lightheadedness, abdominal pain, nausea, vomiting, fever, chills, double vision, loss of vision, chest pain, difficulty breathing, shortness of breath, back pain, night sweats, pain with urination, increased urinary frequency, increased urinary urgency, blood in his urine or stool, syncope or a near syncopal episode, recent trauma or falls, bowel incontinence, bladder incontinence, or any other complaints at this time. Onset (ago): week(s) (2) Relieving factors: none Exacerbating factors: none Associated symptoms: denies other symptoms Treatments prior to arrival: none Related Data Home Medications ?Medication ?Instructions ?Recorded ?Confirmed cetirizine 10 mg tablet 10 mg PO DAILY 01/04/2401/04 folic acid 1 mg tablet 1 mg PO DAILY 01/04/2401/22 thiamine HCl (vitamin B1) 100 mg 100 mg PO DAILY 01/0301/23/24 tablet Previous Rx's ?Medication ?Instructions ?Recorded betamethasone dipropionate 0.05 % 1 appl topical BID P RN skin 09/01/22 topical cream irritation #45 grams fluticasone propionate 50 1 spray intranasal Q12H 30 d ays 09/05/23 mcg/actuation nasal #16 grams spray,suspension (Flonase Allergy Relief) cuybyfmbrj-ekxklfyrejvka-dshponym 1 tab PO Q4H #20 tab s 01/10/24 50 mg-325 mg-40 mg tablet levetiracetam 500 mg tablet 500 mg PO BID 90 days #180 tabs 04/23/24 Allergies Allergy/AdvReac Type Severity Reaction Status Date / Time Seasonal Allergies Allergy Intermediate Congestion Verified 10/09/24 10:53 Review of Systems 2 Constitutional: Constitutional: Reports no additional constitutional complaints, Denies chills, Denies fever(s), Reports headache(s) (intermittent lower posterior head pain + pressure) and Denies night sweats Eyes: Eyes: Reports no additional eye complaints, Reports blurry vision (intermittent - right sided), Denies change in vision, Denies diplopia, Denies eye discharge, Denies loss of vision and Denies eye pain ENT: Denies dizziness and Reports headache(s) (intermittent lower posterior head pain + pressure) Cardiovascular: Cardiovascular: Reports no additional cardiovascular complaints, Denies chest pain, Denies lightheadedness, Denies Loss of Consciousness and Denies dyspnea Respiratory: Respiratory: Reports no additional respiratory complaints and Denies dyspnea Gastrointestinal: Gastrointestinal: Reports no additional gastrointestinal complaints, Denies abdominal pain, Denies melena, Denies hematochezia, Denies change in bowel habits and Denies change in stool character Genitourinary: Genitourinary: Reports no additional male genitourinary complaints, Denies hematuria, Denies oliguria, Denies difficulty urinating, Denies dysuria, Denies urinary frequency, Denies urinary hesitancy, Denies urinary incontinence and Denies urinary urgency Musculoskeletal: Musculoskeletal: Reports no additional musculoskeletal complaints, Denies numbness and Denies tingling Neurologic: Denies dizziness, Reports headache(s) (intermittent lower posterior head pain + pressure), Denies loss of vision, Denies numbness and Denies tingling Psychiatric: Psychiatric: Reports no additional psychiatric complaints Endocrine: Endocrine: Reports no additional endocrine complaints Hematologic/Lymphatic: Hematologic/Lymphatic: Reports no additional hematologic/lymphatic complaints Allergic/Immunologic: Allergic/Immunologic: Reports no additional allergic/immunologic complaints PMFSH Past Medical History Attestation statement: The following information was validated with the patient. (all information validated with the patient's brother) Source: old records reviewed, obtained from family (patient's brother provided additional history and confirmed the history provided by the patient. ) and nursing notes reviewed Medical History Depression Anxiety Surgical History No pertinent past surgical history Social History Social History Housing: House Alcohol intake: current Alcohol intake frequency: holidays/special occasions only Patient Tobacco Use Status: Current someday Tobacco user Tobacco use type: Cigarette Cigarettes Per Day: 2 Years Smoked: 2 e-Cigarette/Vaping Use: Never Used Second Hand Smoke Exposure: Yes service: No Current occupational status: employed Current occupation: [employer] Current occupational exposures/hazards: No Cognitive needs: No Hearing needs: No Vision needs: No Physical Exam ED Vital Signs: Vital Signs - 24 hr 10/09/24 10:49 10/09/24 16:00 10/09/24 16:22 Temperature 97.6 F 98.0 F 98.0 F Pulse Rate 76 74 74 Respiratory Rate 18 18 18 Blood Pressure 145/85 H 138/88 138/88 Pulse Oximetry 96 97 97 Oxygen Delivery Method Room Air Room Air Room Air BMI result Body Mass Index 25.8 Const General: cooperative, no acute distress, alert and awake Nutritional Appearance: well nourished Orientation/consciousness: patient oriented x3 HENMT Head: Yes normal to inspection and Yes atraumatic Ears: hearing grossly normal bilaterally and external ears normal General nose exam: Normal external nose present, no nasal discharge noted and no epistaxis Face and sinus: Yes normal facial exam, No abrasion and No laceration Mouth: Normal oral and palatal mucosa present, no drooling and no muffled voice Eyes General: appearance normal, both eyes and all related structures Periorbital: periorbital findings normal Eyelids: Yes eyelids normal Conjunctivae: conjunctivae normal Pupils: Equal, round and reactive pupils present EOM: EOMs intact bilaterally Neck Neck: Yes normal visual inspection, Yes full ROM and Yes no lymphadenopathy Resp Effort & Inspection: normal respiratory effort and able to speak in complete sentences Neuro General: patient oriented x3, moves all extremities and CN's II-XI intact bilaterally Cranial nerves: Yes Equal, round and reactive pupils present Cognition (Neuro): normal cognition Extrem General: Yes normal to inspection, Yes full ROM and Yes capillary refill normal Psych Appearance: grossly normal Mental Status: mental status grossly normal Affect: normal affect Attitude: cooperative Thought process: Normal thought process present Thought content: Normal thought content present Insight: Good insight present (Psych) Medications Administered Discontinued Medications Generic Name Dose Route Start Last Admin Trade Name Raul PRN Reason Stop Dose Admin Iohexol 100 ml 10/09/24 14:31 10/09/24 14:32 Iohexol 350 Mg/Ml 100 Ml Infus..Btl IV 10/09/24 14:32 70 ml ONCE ONE Administration Medical Decision Making Medical Decision Making MDM Narrative: Patient is a 34 year old assigned male at with a history of depression, anxiety, and skull fractures + thin tetorial hematoma (SDH) + small right temporal SDH, trace subarachnoid hemorrhage (TSAH) without mass effect or midline shift on 12/21/2023 presenting to the emergency department today with increased posterior head pressure, intermittent right eye blurry vision, and intermittent right eye lid twitching. Patient's physical exam was unremarkable. Patient's blood work showed elevated LFTs (AST 304 ALT 259). Patient's CT / CTA of the head and neck showed no acute process. I explained my physical exam findings as well as all test results to the patient and the patient's brother. I answered all questions asked by the patient and the patient's brother. Patient states that he does drink alcohol but not daily and he did drink as recently as 2 days ago. Patient continues to deny any abdominal pain, nausea, vomiting. I am suspicious the patient's current symptoms are secondary to his TBI and not an acute process. I spoke with [facility] who stated they'd suggest this patient following up in their Physical Medicine and Rehabilitation center for TBIs and I was able to secure the patient an appointment on December [address] Harris. I stressed the importance of the patient taking his medication as directed (either prescribed or as the over the counter packaging recommends). I stressed the importance of the patient following up with his primary care provider (specifically about his LFTs) and with the physical medicine and rehabilitation center. I stressed the importance of the patient returning to the emergency department immediately if his symptoms were to worsen or if he were to develop any dizziness, shortness of breath, difficulty breathing, chest pain, blurry vision, loss of vision, nausea, vomiting, abdominal pain, fever, chills, back pain, or any other complaints. Patient and the patient's brother verbalized agreement and understanding with this treatment plan and discharge. Differential Diagnosis Differential Diagnoses: The differential diagnosis associated with the presentation includes Traumatic brain injury Anxiety Elevated LFTs Intermittent headaches Headache Admission/Observation Consideration of admission/observation: Escalation of care including admission/observation considered Patient would have been admitted to the hospital had his work up had any findings where hospital admission was appropriate and his clinical presentation warranted hospital admission. Lab Data [facility] Lab Attestation statement: I reviewed the patient's lab results. My interpretation of these results are in the [facility] Rationale portion of this note. 10/09/24 13:04 10/09/24 13:04 Labs: Lab Results 10/09/24 Range/Units 13:04 WBC 8.1 (4.8-10.8) X10*3/uL RBC 5.49 (4.60-5.80) X10*6/uL Hgb 17.1 (14.0-18.0) g/dl Hct 48.3 (42.0-52.0) % MCV 88.0 (80.0-98.0) fL MCH 31.1 (27.0-33.0) pg MCHC 35.4 (31.0-36.0) g/dl RDW 12.1 (11.0-16.0) % Plt Count 260 (160-400) X10*3/uL MPV 9.8 (9.4-12.4) fL Immature Gran % (Auto) 0.4 (0.0-0.4) % Neut % (Auto) 67.6 (45-73) % Lymph % (Auto) 20.4 (20-40) % Cache % (Auto) 11.0 (2-11) % Eos % (Auto) 0.2 (0-4) % Baso % (Auto) 0.4 (0-2) % Lymph # (Auto) 1.7 (1.2-4.9) X10*3/uL Cache # (Auto) 0.9 (0.1-1.2) X10*3/uL Eos # (Auto) 0.0 (0.0-0.4) X10*3/uL Baso # (Auto) 0.0 (0.0-0.2) X10*3/uL Abs Immat Gran (auto) 0.03 (0.00-0.03) X10*3/uL Absolute Neuts (auto) 5.5 (2.0-8.3) x10*3/uL Absolute Nucleated RBC 0.000 (0.0-0.012) X10*3/uL Nucleated RBC % (auto) 0.0 (0.0-0.2) /100WBC PT 11.3 (10.9-12.4) SEC INR 1.0 (0.9-1.1) Sodium 139 (135-145) mmol/L Potassium 4.3 (3.3-5.1) mmol/L Chloride 103 (96-108) mmol/L Carbon Dioxide 27 (22-29) mmol/L Anion Gap 13 (12-20) BUN 9 (9-16) mg/dL Creatinine 0.77 (0.5-1.4) mg/dL Estim Creat Clear Calc 139.5 Estimated GFR > 60 Random Glucose 102 (60-115) mg/dL Calcium 9.4 (8.4-10.2) mg/dL Total Bilirubin 0.8 (0.0-1.0) mg/dL AST 304 H (5-37) U/L ALT 259 H (0-40) U/L Alkaline Phosphatase 106 (39-117) U/L Total Protein 8.0 (6.5-8.0) g/dL Albumin 4.9 (3.5-5.0) g/dL TSH 1.90 (0.32-4.0) uIU/mL Independent Interpretation I performed an independent interpretation of an: CT Scan Interpretation: My interpretation is in agreement with the radiologist's impression of these imaging studies. L Report Number: [id number]: Total DLP = 677.00 mGy-cm EXAMINATION: CT HEAD WITHOUT IV CONTRAST HISTORY: OLD HEAD INJURY, PAIN IN SKULL FX AREA. TECHNIQUE: Unenhanced helical CT of the head was performed per standard departmental protocol. Coronal and sagittal reformats of the head were also evaluated. One or more of the following techniques was used for dose reduction: Automated exposure control, adjustment of the mA and/or kV according to patient size, use of iterative reconstruction technique. DLP: 677 mGy-cm COMPARISON: There are no prior studies available for comparison. FINDINGS: BRAIN: The brain parenchyma is unremarkable. There is normal jane/white differentiation. The ventricular system is normal in size and configuration. There is no mass effect or midline shift. No intra- or extra-axial fluid collections are identified. SINUSES: The visualized paranasal sinuses are clear. The mastoid air cells and middle ear cavities are well pneumatized. ORBITS: The visualized orbits are unremarkable. BONES/SOFT TISSUES: The extracranial soft tissues are unremarkable. The calvarium is intact. No suspicious lytic or sclerotic lesions. CT/CT head/brain wo IV con IMPRESSION: Unremarkable unenhanced head CT. Electronically signed by: Wojciech Hudson MD 10/09/2024 12:33 PM EDT RP Dictated By: Wojciech Hudson MD Signed By: Electronically signed by Wojciech Hudson MD 10/09/24 1233 Report Number: [id number]: Total DLP = 298.00 mGy-cm EXAMINATION: CT MAXILLOFACIAL WITHOUT IV CONTRAST HISTORY: OLD SKULL FX, BLURRY VISION. TECHNIQUE: Serial 1.5 mm helically acquired images were obtained of the facial bones per standard departmental protocol. Coronal and sagittal reformatted images were also obtained and evaluated. One or more of the following techniques was used for dose reduction: Automated exposure control, adjustment of the mA and/or kV according to patient size, use of iterative reconstruction technique. DLP: 293 mGy-cm COMPARISON: There are no prior studies available for comparison. FINDINGS: The facial bones are intact. No fractures are identified. The globes are intact. There is mild mucosal thickening in the right maxillary sinus. The visualized portion of the brain is unremarkable. No soft tissue abnormality is identified. CT/CT facial bones wo IV con IMPRESSION: No evidence of fracture of the facial bones. Electronically signed by: Wojciech Hudson MD 10/09/2024 12:39 PM EDT RP Dictated By: Wojciech Hudson MD Signed By: Electronically signed by Wojciech Hudson MD 10/09/24 1239 Report Number: [id number]: Total DLP = 724.00 mGy-cm EXAMINATION: CT HEAD NECK ANGIOGRAPHY WITH IV CONTRAST HISTORY: headache, right sided blurry vision, hx of TBI COMPARISON: Relation is made with the unenhanced head CT performed earlier in the day. TECHNIQUE: Helical axial images were obtained from the aortic arch to the vertex after intravenous injection of contrast per standard departmental protocol. MIP/3D reconstructions were obtained and reviewed. One or more of the following techniques was used for dose reduction: Automated exposure control, adjustment of the mA and/or kV according to patient size, use of iterative reconstruction technique. DLP: 724 mGy-cm FINDINGS: CTA NECK: AORTIC ARCH: The visualized portions of the arch as well as innominate, right subclavian, and left subclavian arteries show no hemodynamically significant stenosis. Right common carotid artery: There is no large vessel occlusion or hemodynamically significant stenosis. Right internal carotid artery: There is no large vessel occlusion or hemodynamically significant stenosis. Left common carotid artery: There is no large vessel occlusion or hemodynamically significant stenosis. Left internal carotid artery: There is no large vessel occlusion or hemodynamically significant stenosis. (Extracranial internal carotid artery stenosis estimates are based on use of distal ICA as the denominator.) Right vertebral artery: There is no large vessel occlusion or hemodynamically significant stenosis. Left vertebral artery: There is no large vessel occlusion or hemodynamically significant stenosis. CTA HEAD: Right intracranial ICA: There is no large vessel occlusion, hemodynamically significant stenosis, or aneurysm. Right JODI: There is no large vessel occlusion, hemodynamically significant stenosis, or aneurysm. Right MCA: There is no large vessel occlusion, hemodynamically significant stenosis, or aneurysm. Left intracranial ICA: There is no large vessel occlusion, hemodynamically significant stenosis, or aneurysm. Left JODI: There is no large vessel occlusion, hemodynamically significant stenosis, or aneurysm. Left MCA: There is no large vessel occlusion, hemodynamically significant stenosis, or aneurysm. Basilar artery: There is no large vessel occlusion, hemodynamically significant stenosis, or aneurysm. Superior cerebellar arteries: There is no large vessel occlusion, hemodynamically significant stenosis, or aneurysm. Right CONFIGURATION MANAGEMENT MANAGER: There is no large vessel occlusion, hemodynamically significant stenosis, or aneurysm. Left CONFIGURATION MANAGEMENT MANAGER: There is no large vessel occlusion, hemodynamically significant stenosis, or aneurysm. VEINS: Venous enhancement is within normal limits for this technique. SOFT TISSUES: The bilateral parotid, submandibular, and thyroid glands are unremarkable. No laryngeal abnormality is identified. There is no cervical lymphadenopathy. CT/CT angio head neck IMPRESSION: No large vessel occlusion, hemodynamically significant stenosis, or aneurysm in the head and neck. Electronically signed by: Wojciech Hudson MD 10/09/2024 02:41 PM EDT Dictated By: Wojciech Hudson MD Signed By: Electronically signed by Wojciech Hudson MD 10/09/24 1441 Independent Historian Clinical information obtained from an independent historian. History obtained from or confirmed by: Other (patient's brother provided additional history and confirmed the history provided by the patient. ) Critical Care Time Critical Care Time Critical Care Time: Yes Total Critical Care Time: 36 Attestation: I spent 36 minutes of Critical Care Time with this patient. This does not include time spent on separately reported billable procedures. Discharge Plan Discharge Clinical Impression: Closed TBI (traumatic brain injury) Patient Disposition: Home, Self-Care Instructions: Head Injury (DC) Additional Instructions: Your work up today was reassuring that there is nothing EMERGENT causing your symptoms. However, your blood work showed elevated liver enzymes that MUST be followed up on by your primary care provider. I was able to get you an appointment scheduled at [facility] - they see and help manage traumatic brain injury patients. Your appointment is at 9am on December 19 and is located at [address] [place] [address] [facility] with Dr. Harris IF you are prescribed medications and/or you are taking over the counter medications - it is very important you continue to do so as prescribed / directed unless told otherwise. Follow up with your primary care provider. Return to the emergency department immediately if your symptoms worsen or if you develop any numbness, tingling, dizziness, shortness of breath, difficulty breathing, chest pain, blurry vision, loss of vision, nausea, vomiting, abdominal pain, fever, chills, back pain, or any other complaints. Please see the information below about our Patient Portal. If you are not yet enrolled in the [facility] Patient Portal, you will receive an enrollment email invitation following your visit to any [facility] care setting. You may also self-enroll in the Patient Portal by visiting our website: [email or web address] The following information is required to access the Patient Portal: - Your [facility] Medical Record Number - Your personal home email address (must match what is in your electronic medical record, Registration staff can assist with this) - Name - Date of Capabilities of the Patient Portal: - Message some providers - View upcoming appointments - Access your health summary, medical history, and visit history - View current conditions and allergies - View procedure and lab results - View your medications, including guidelines, side effects, and precautions - Complete pre-appointment questionnaires requested by your provider - Ready summary reports of your office visits and procedures To access the Patient Portal Mobile [employer], follow these directions: - Search [employer] in the [employer] Store or Google Play Store - Download the [employer] - Search for [facility] - Enter your login/password Prescriptions: No Action fluticasone propionate [Flonase Allergy Relief] 50 mcg/actuation spray,suspension 1 spray intranasal Q12H 30 Days Qty: 16 0RF Rx Instructions: administer into each nostril vksilgqros-bdkokcbkvztrc-grke 50-325-40 mg tablet 1 tab PO Q4H Qty: 20 0RF Rx Instructions: 1 tabs every 4 hours p.r.n., not to exceed 6 tablets per day, not to exceed 4000 mg acetaminophen per day levetiracetam 500 mg tablet 500 mg PO BID 90 Days Qty: 180 0RF betamethasone dipropionate 0.05 % cream 1 appl topical BID PRN (Reason: skin irritation) Qty: 45 3RF thiamine HCl (vitamin B1) 100 mg tablet 100 mg PO DAILY cetirizine 10 mg tablet 10 mg PO DAILY folic acid 1 mg tablet 1 mg PO DAILY Referrals: Elizabeth Floyd, [employer]ER [Primary Care Provider, Internal Medicine] Stand Alone Forms: Work/School Release Interventions: ED Discharge Assessment Last Done: 10/09/24 16:22 Discharge Date/Time: 10/09/24 16:22 Print Language: Grenadian
[2024-10-09 13:09] LABS: MANUAL DIFF FLAG NO
[2024-10-09 13:10] LABS: Hematocrit 48.3 % (42.0-52.0); Hemoglobin 17.1 g/dl (14.0-18.0); Imm Gran Abs Auto 0.03 X10*3/uL (0.00-0.03); Imm Gran Pct Auto 0.4 % (0.0-0.4); Lymphocytes Absolute Auto 1.7 X10*3/uL (1.2-4.9); Mean Corpuscular HGB Conc 35.4 g/dl (31.0-36.0); Mean Corpuscular Hemoglobin 31.1 pg (27.0-33.0); Mean Corpuscular Volume 88.0 fL (80.0-98.0); NRBC Abs Auto 0.000 X10*3/uL (0.0-0.012); NRBC Pct Auto 0.0 /100WBC (0.0-0.2); Platelet Count 260 X10*3/uL (160-400); Red Blood Count 5.49 X10*6/uL (4.60-5.80); White Blood Count 8.1 X10*3/uL (4.8-10.8)
[2024-10-09 13:26] LABS: INTERNATIONAL NORM RATIO 1.0 (0.9-1.1); Prothrombin Time 11.3 SEC (10.9-12.4)
[2024-10-09 13:39] LABS: Alanine Aminotransferase 259 U/L (0-40); Albumin Level 4.9 g/dL (3.5-5.0); Alkaline Phosphatase 106 U/L (39-117); Anion Gap 13 (12-20); Aspartate Amino Transferase 304 U/L (5-37); Blood Urea Nitrogen 9 mg/dL (9-16); Calcium 9.4 mg/dL (8.4-10.2); Carbon Dioxide 27 mmol/L (22-29); Chloride 103 mmol/L (96-108); Creatinine Clr Calc Pharmacy 139.5; Estimated Glomerular Filt Rate > 60; Potassium 4.3 mmol/L (3.3-5.1); Sodium 139 mmol/L (135-145); Total Protein 8.0 g/dL (6.5-8.0)
[2024-10-09] MEDS: iohexoL 350 MG/ML 100 ML INFUS..BTL IV (14:32)
[2024-10-09 16:00] VITALS: BP 138/88; PULSE 74; RESP 18; TEMP 36.7; O2SAT 97
[2024-10-09 16:22] VITALS: BP 138/88; PULSE 74; RESP 18; TEMP 36.7; O2SAT 97
== END 2024-10-09 16:22 | disposition home or self-care (01) ==
PROVIDERS: Physician Assistant Medical; Emergency Provider Emergency Medicine; PCP Nurse Practitioner Family
DX: R51.9 Headache, unspecified (principal); H53.8 Other visual disturbances; Z91.81 History of falling; R10.9 Unspecified abdominal pain; R53.1 Weakness; R74.8 Abnormal levels of other serum enzymes; E78.00 Pure hypercholesterolemia, unspecified; Z87.820 Personal history of traumatic brain injury; Z79.899 Other long term (current) drug therapy
CPT/HCPCS: 36415; 70450; 70486; 70496; 70498; 80053; 84443; 85025; 85610; 99284; Q9967

== ENCOUNTER → 2024-10-09 11:36 | Outpatient (BNV) | payer OTHER, SELFPAY | PROVIDERS: PCP Nurse Practitioner Family; Visit Provider Radiology Diagnostic Radiology | DX: R51.9 Headache, unspecified (principal); H53.141 Visual discomfort, right eye; M54.81 Occipital neuralgia | CPT/HCPCS: 70450; 70486; 70496; 70498 ==

== ENCOUNTER 2024-11-18 09:27 | Outpatient (AMB) | payer OTHER, SELFPAY ==
--- NOTE | 2024-11-18 09:37 | A.OFFPC_ITS ---
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 He was evaluated at [facility] ED on 10/09/2024. He requests completion of FMLA paperwork for his employer for that visit. [facility] ED note on 10/09/2024: HPI narrative: Patient is a 34 year old assigned male at with a history of depression, anxiety, and skull fractures + thin tetorial hematoma (SDH) + small right temporal SDH, trace subarachnoid hemorrhage (TSAH) without mass effect or midline shift on 12/21/2023 presenting to the emergency department today with increased posterior head pressure, intermittent right eye blurry vision, and intermittent right eye lid twitching. Patient states that he tripped over a pool chair and hit his head on 12/21/2023 causing multiple skull fractures and areas of bleeding into the brain in [place]. Patient states that he last saw his Neurosurgeon remotely in May or June and was cleared for no additional follow up + allowed to drive. Patient states that he was prophylactically on anti- seizure medication but has since been cleared from all of those. Patient states that he was doing fine but over the last 2 weeks he has had intermittent sharp pains in the back of his head with constant feeling of fullness and intermittent right eye blurry vision with eye lid twitching. Patient denies any dizziness, lightheadedness, abdominal pain, nausea, vomiting, fever, chills, double vision, loss of vision, chest pain, difficulty breathing, shortness of breath, back pain, night sweats, pain with urination, increased urinary frequency, increased urinary urgency, blood in his urine or stool, syncope or a near syncopal episode, recent trauma or falls, bowel incontinence, bladder incontinence, or any other complaints at this time. MDM Narrative: Patient is a 34 year old assigned male at with a history of depression, anxiety, and skull fractures + thin tetorial hematoma (SDH) + small right temporal SDH, trace subarachnoid hemorrhage (TSAH) without mass effect or midline shift on 12/21/2023 presenting to the emergency department today with increased posterior head pressure, intermittent right eye blurry vision, and intermittent right eye lid twitching. Patient's physical exam was unremarkable. Patient's blood work showed elevated LFTs (AST 304 ALT 259). Patient's CT / CTA of the head and neck showed no acute process. I explained my physical exam findings as well as all test results to the patient and the patient's brother. I answered all questions asked by the patient and the patient's brother. Patient states that he does drink alcohol but not daily and he did drink as recently as 2 days ago. Patient continues to deny any abdominal pain, nausea, vomiting. I am suspicious the patient's current symptoms are secondary to his TBI and not an acute process. I spoke with [facility] who stated they'd suggest this patient following up in their Physical Medicine and Rehabilitation center for TBIs and I was able to secure the patient an appointment on December [address] Harris. I stressed the importance of the patient taking his medication as directed (either prescribed or as the over the counter packaging recommends). I stressed the importance of the patient following up with his primary care provider (specifically about his LFTs) and with the physical medicine and rehabilitation center. I stressed the importance of the patient returning to the emergency department immediately if his symptoms were to worsen or if he were to develop any dizziness, shortness of breath, difficulty breathing, chest pain, blurry vision, loss of vision, nausea, vomiting, abdominal pain, fever, chills, back pain, or any other complaints. Patient and the patient's brother verbalized agreement and understanding with this treatment plan and discharge. He reports intermittent dull right-sided head pressure and right eye twitching since he was discharged from the ED. He also reports intermittent, brief blurry vision of his right eye. He is currently experiencing right eye twitching, no blurry vision. The last time he experienced right-sided head pressure was 2 days ago. He takes Ibuprofen as needed without relief. He has not trial Tylenol. He denies any other symptoms at this time. He drinks 2-4 beers 3-4 times weekly. [facility] Medical History Depression Anxiety Surgical History No pertinent past surgical history Social History Housing: House Alcohol intake: current Alcohol intake frequency: holidays/special occasions only Patient Tobacco Use Status: Current someday Tobacco user Tobacco use type: Cigarette Cigarettes Per Day: 2 Years Smoked: 2 e-Cigarette/Vaping Use: Never Used Second Hand Smoke Exposure: Yes service: No Current occupational status: employed Current occupation: [employer] Current occupational exposures/hazards: No Cognitive needs: No Hearing needs: No Vision needs: No Questionnaire PHQ-9 Over the last 2 weeks, how often have you been bothered by any of the following problems? 1. Little interest or pleasure in doing things: several days 2. Feeling down, depressed, or hopeless: several days 3. Trouble falling or staying asleep, or sleeping too much: several days 4. Feeling tired or having little energy: several days 5. Poor appetite or overeating: several days 6. Feeling bad about yourself - or that you are a failure or have let yourself or your family down: not at all 7. Trouble concentrating on things, such as reading the newspaper or watching television: not at all 8. Moving or speaking so slowly that other people could have noticed. Or the op posite - being so fidgety or restless that you have been moving around a lot more than usual: not at all 9. Thoughts that you would be better off or of hurting yourself in some way: not at all Total score: 5 Source: Developed by Drs. Wojciech Martin, Veena Hobson, Nathaniel Judge and colleagues, with an educational linn from [employer]. Thrive Questionnaire Date Thrive assessed: 11/11/24 I am a: Patient What is your living situation today?: I have a steady place to live Within the past 12 months, did the food you bought not last and you didn't have the money to get more?: Never true Within the past 12 months, did you worry whether your food would run out before you got money to buy more?: Never true Do you have trouble paying for medicines?: No Do you have trouble getting transportation to medical appointments?: No Do you have trouble paying your heating and electricity bill?: No Do you have trouble taking care of your child, family member or friend?: No Do you have trouble with day-to-day activities such as bathing, preparing meals, shopping, managing finances, etc.?: No Are you currently unemployed and looking for a job?: No Are you interested in more education?: No Please select the resources that you would like help with: None Currently or been in a relationship where the following occur: No concerns reported THRIVE Score: 0 AUDIT C Alcohol Use Questionnaire (AUDIT-C) 1. How often do you have a drink containing alcohol?: 2-3 times a week 2. How many drinks containing alcohol do you have on a typical day when you are drinking?: 1 or 2 3. How often do you have six or more drinks on one occasion?: Monthly Total Score: 5 Score Reviewed/Action Taken: Yes RITA-7 AMB Questionnaire RITA-7 Date RITA - 7 assessed: 01/23/24 Feeling nervous, anxious, or on edge: 1 = Several days Not being able to stop or control worryin = Several days Worrying too much about different things: 1 = Several days Trouble relaxin = Several days Being so restless that it is hard to sit still: 1 = Several days Becoming easily annoyed or irritable: 1 = Several days Feeling afraid as if something awful might happen: 0 = Not at all Total RITA-7 score (0-4 normal; 5-9 mild; 10-14 moderate; 15-21 severe): 6 Source: Developed by Drs. Wojciech Martin, Veena Hobson, Nathaniel Judge and colleagues, with an educational linn from [employer]. Review of Systems Const Details: Const Denies chills, Denies fatigue, Denies fever(s), Denies headache(s) and Denies weakness ENT Denies dizziness and Denies headache(s) Card Denies chest pain, Denies lightheadedness, Denies dyspnea and Denies other (Palpitations) Resp Denies cough, Denies dyspnea, Denies wheezing and Denies other ( shortness of breath) GI Denies abdominal pain, Denies melena, Denies hematochezia, Denies change in bowel habits, Denies dyspepsia and Denies nausea Denies hematuria and Denies dysuria Musc Denies abnormal gait, Denies myalgias, Denies arthralgias, Denies numbness and Denies tingling Skin/Breast Denies rash, Denies unusual bruising and Denies wounds Neuro Denies abnormal gait, Denies dizziness, Denies headache(s), Denies memory loss, Denies numbness, Denies Sensory deficit (Neuro), Denies tingling and Denies weakness Psych Denies anxiety, Denies depression, Denies memory loss Endo Denies cold intolerance, Denies fatigue, Denies heat intolerance, Denies polydipsia and Denies polyuria Aller/Immun Denies wheezing Physical exam (Primary Care) Vital Signs: Last Vital Signs Temp 98.1 F 11/18/24 09:40 Pulse 104 H 11/18/24 09:40 Resp 16 11/18/24 09:40 BP 121/104 H 11/18/24 09:40 Pulse Ox 95 11/18/24 09:40 Oxygen Delivery Method Room Air 11/18/24 09:40 BMI result Body Mass Index 25.1 Tobacco/Smoking Status: Tobacco use Status Tobacco use date assessed 11/18/24 11/18/24 09:43 Patient Tobacco Use Status Current someday Tobacco 11/18/24 09:43 Tobacco use type Cigarette 11/18/24 09:43 e-Cigarette/Vaping Use Never Used 11/18/24 09:43 PHQ-9: PHQ-9 Score PHQ-9: Total score 5 11/18/24 09:43 Thrive Assessment: Date of Thrive Assessment Date Thrive assessed 11/11/24 11/18/24 09:43 Currently or been in a relationship where the following occur: No concerns reported Const Other: General: no acute distress and well developed Nutritional Appearance: well nourished Orientation/consciousness: patient oriented x3 HENMT Head: Yes normocephalic and Yes atraumatic Eyes General: appearance normal, both eyes and all related structures Pupils: Equal, round and reactive pupils present EOM: EOMs intact bilaterally Resp Effort & Inspection: normal respiratory effort Auscultation: clear to auscultation bilaterally Cardio Rate: regular rate Rhythm: regular rhythm Heart sounds: S1 normal heart sound present, S2 normal heart sound present, no gallops, no murmurs and no rubs GI Palpation (GI): No Abdominal aortic bruit present, Soft to palpation, nontender, No hepatosplenomegaly present and No Rebound tenderness present Auscultation: normal bowel sounds General: Yes no CVA tenderness Back/Spine/Pelvis Back: no CVA tenderness Cervical Spine: cervical ROM normal and No Cervical spine tenderness Thoracic/Lumbar Spine: thoraco-lumbar ROM normal, No pain with thoraco-lumbar ROM, No thoracic spinal tenderness and No lumbar spinal tenderness Extrem General: Yes normal to inspection, No edema and No calf tenderness Skin General: warm and dry. Normal skin color. Normal skin turgor Lesions: no lesions Rashes: no rashes Trauma: no lacerations or abrasions Wounds: no wounds Nails: normal Neuro General: patient oriented x3, gait normal and no focal neuro deficit Cranial nerves: Yes Equal, round and reactive pupils present Cognition (Neuro): normal cognition Gait exam (Neuro): Normal gait present Sensory Exam: No Sensory deficit (Neuro) Psych Appearance: grossly normal Affect: normal affect Attitude: cooperative Thought process: Normal thought process present Coding Level of Care Code Est Pt Level 4 (72097) Diagnoses History of traumatic brain injury Z87.820 Excessive drinking alcohol F10.10 Transaminitis R74.01 Assessment & Plan Assessment & Plan (1) History of traumatic brain injury: Code(s): Z87.820 - Personal history of traumatic brain injury Category: Medical Plan: He is currently experiencing right eye twitching, no blurry vision. Denies head pressure. Normal physical and neuro exam. Continue current treatment regimen. May take Tylenol as needed. Encouraged to significantly cut down or avoid alcohol intake. Follow-up with [facility] as planned. [facility] paperwork completed for his employer. Encouraged to perform fasting lab work and follow-up for an extended physical exam. Return with symptoms or concerns. Verbalized understanding and agreed with the plan. (2) Excessive drinking alcohol: Code(s): F10.10 - Alcohol abuse, uncomplicated Category: Medical Plan: He drinks 2-4 beers 3-4 times weekly. Excessive drinking may have an impact on his current symptoms and liver. Recent liver enzymes are elevated. Instructed on the health risks and complications of excessive drinking and encouraged to cut down or avoid drinking. No more than 2 drinks daily 0 5 weekly. Declines medication treatment for excessive drinking or referral to [facility] comprehensive medicine and notes he will cut down without treatment. Healthy diet and routine exercise encouraged. Will recheck liver enzymes. Follow-up as needed. Verbalized understanding and agreed with the plan. (3) Transaminitis: Code(s): R74.01 - Elevation of levels of liver transaminase levels Category: Medical Plan: Plan as above. Orders: Orders Microalbumin, Random (w Creat) Today Z00.00 - Encounter for general adult medical examination without abnormal findings
[2024-11-18 09:40] VITALS: BP 121/104; PULSE 104; RESP 16; TEMP 36.7; O2SAT 95; BMI 25.1
[2024-11-18 09:54] VITALS: BP 110/74; PULSE 100
== END 2024-11-18 12:07 | disposition home or self-care (01) ==
LOC: HO.HMCFM 09:28
PROVIDERS: PCP Nurse Practitioner Family; Visit Provider Nurse Practitioner Family
DX: Z87.820 Personal history of traumatic brain injury (principal); F10.10 Alcohol abuse, uncomplicated; R74.01 Elevation of levels of liver transaminase levels